=== PATIENT | male | born 1965 | race African-American/Black ===

== ENCOUNTER 2022-09-02 14:44 | Emergency (ER) | payer MEDICAID, OTHER ==
[~2022-09-02] VITALS: Ht 177.8 cm; Wt 85.0 kg
[2022-09-02] MEDS ORDERED: ACETAMINOPHEN 325MG TABLET PO STA (14:52)
[2022-09-02] MEDS ORDERED: SODIUM CHLORIDE 0.9% 1,000 ML IV ONE (15:00)
[2022-09-02] MEDS ORDERED: LORAZEPAM 2MG/ML CPJ IV ONE (15:00)
[2022-09-02 15:35] LABS: BASOPHILS % 0.3 % (0.0-2.0); EOSINOPHILS % 0.2 % (0.0-5.0); HEMATOCRIT. 40.3 % (42.0-52.0); HEMOGLOBIN. 13.9 g/dL (14.0-18.0); MEAN CORPUSCULAR HEMOGLOBIN 31.4 pg (28.0-32.0); MEAN PLATELET VOLUME 6.8 fl (7.4-10.4); MONOCYTES % 9.7 % (2.0-8.0); NEUTROPHILS % 70.8 % (40.0-76.0); PLATELET 299 x1000/uL (130-400); RED BLOOD CELL COUNT 4.43 mill/uL (4.7-6.1); RED CELL DISTRIBUTION WIDTH 14.2 % (11.6-14.6)
[2022-09-02 15:43] LABS: CHLORIDE 100 mEq/L (98-107)
[2022-09-02 15:54] LABS: ETHANOL BLOOD 74 mg/dL (-10)
[2022-09-02 15:58] LABS: INR 0.9
[2022-09-02 18:19] LABS: CLARITY URINE CLEAR (CLEAR); COLOR URINE YELLOW (YELLOW); KETONES URINE NEGATIVE (NEGATIVE); LEUKOCYTE ESTERASE URINE NEGATIVE (NEGATIVE); NITRITE URINE NEGATIVE (NEGATIVE); OCCULT BLOOD URINE NEGATIVE (NEGATIVE); PROTEIN URINE NEGATIVE (NEGATIVE); SPECIFIC GRAVITY URINE 1.004 (1.005-1.030); UROBILINOGEN URINE 0.2 E.U./dL (0.2-1.0)
[2022-09-02 18:58] VITALS: BP 136/94; PULSE 80; RESP 12; TEMP 99.6
[2022-09-03] MEDS ORDERED: AMLO5TAB88 MT (06:09)
== END 2022-09-02 19:19 | disposition home or self-care (01) ==
LOC: ER 14:44
DX: F10.229 Alcohol dependence with intoxication, unspecified (principal); Y90.3 Blood alcohol level of 60-79 mg/100 ml; I10 Essential (primary) hypertension
CPT/HCPCS: 80053; 81003; 80320; 83880; 83690; 85025; 85610; 84484; 36415; 71045; 70450; 93005; 96361; 96374; 99285; J2060; Z7610 ×2; G0480

== ENCOUNTER 2022-09-02 22:09 | Emergency (ER) | payer MEDICAID ==
[~2022-09-02] VITALS: Ht 165.1 cm; Wt 83.0 kg
[2022-09-02 22:14] VITALS: TEMP 98.8; O2SAT 98
[2022-09-03] MEDS ORDERED: AMLODIPINE 5MG TABLET PO ONE (02:15)
[2022-09-03] MEDS ORDERED: HYDRALAZINE 20MG/ML VIAL IV ONE (03:00)
[2022-09-03 03:21] LABS: BASOPHILS % 1.3 % (0.0-2.0); EOSINOPHILS % 0.3 % (0.0-5.0); HEMOGLOBIN. 13.3 g/dL (14.0-18.0); LYMPHOCYTES % 23.6 % (20.0-50.0); MEAN CORPUSCULAR HEMOGLOBIN 30.9 pg (28.0-32.0); MEAN PLATELET VOLUME 6.7 fl (7.4-10.4); MONOCYTES % 9.8 % (2.0-8.0); PLATELET 290 x1000/uL (130-400); RED BLOOD CELL COUNT 4.29 mill/uL (4.7-6.1); RED CELL DISTRIBUTION WIDTH 14.5 % (11.6-14.6)
[2022-09-03 03:27] LABS: CHLORIDE 104 mEq/L (98-107)
[2022-09-03] MEDS ORDERED: LORAZEPAM 2MG/ML CPJ IV ONE (04:45)
[2022-09-03 05:57] VITALS: BP 177/117; PULSE 116; RESP 16
[2022-09-03] MEDS ORDERED: AMLO5TAB88 MT (06:09)
== END 2022-09-03 06:21 | disposition home or self-care (01) ==
LOC: ER 22:09
DX: I10 Essential (primary) hypertension (principal); F20.9 Schizophrenia, unspecified; F10.229 Alcohol dependence with intoxication, unspecified; Y90.0 Blood alcohol level of less than 20 mg/100 ml
CPT/HCPCS: 93005; 99284; 80053; 85025; 84484; 36415; 96374; 96375; J0360; J2060; Z7610

== ENCOUNTER 2023-08-02 04:16 | Emergency (ER) | payer MEDICAID ==
[~2023-08-02] VITALS: Ht 170.2 cm; Wt 70.0 kg
[~2023-08-02 04:16] MED LIST: AMLO5TAB88 MT
[2023-08-02 04:20] VITALS: O2SAT 98
[2023-08-02 05:00] LABS: BASOPHILS % 0.6 % (0.0-2.0); EOSINOPHILS % 0.5 % (0.0-5.0); HEMATOCRIT. 39.2 % (42.0-52.0); HEMOGLOBIN. 13.3 g/dL (14.0-18.0); LYMPHOCYTES % 23.6 % (20.0-50.0); MEAN CORPUSCULAR HGB CONC 33.9 g/dL (31.0-37.0); MEAN CORPUSCULAR VOLUME 91.4 fL (80.0-94.0); MONOCYTES % 10.8 % (2.0-8.0); NEUTROPHILS % 64.5 % (40.0-76.0); PLATELET 356 x1000/uL (130-400); RED BLOOD CELL COUNT 4.29 mill/uL (4.7-6.1); RED CELL DISTRIBUTION WIDTH 14.9 % (11.6-14.6); WHITE BLOOD COUNT 10.3 x1000/uL (4.5-11.0)
[2023-08-02 05:07] LABS: CARBON DIOXIDE 26 mEq/L (21-32); CHLORIDE 105 mEq/L (98-107); POTASSIUM 4.1 mEq/L (3.5-5.1); SODIUM 134 mEq/L (136-145)
[2023-08-02 05:08] LABS: CALCIUM 9.9 mg/dL (8.7-10.4)
[2023-08-02 05:12] LABS: GLUCOSE 108 mg/dL (70-105)
[2023-08-02 05:13] LABS: UREA NITROGEN BLOOD 23 mg/dL (9-23)
[2023-08-02 05:14] LABS: TROPONIN I HIGH SENSITIVITY 5 ng/L (3.0-53)
[2023-08-02 05:35] LABS: CREATININE 1.5 mg/dL (0.6-1.3)
[2023-08-02 09:30] LABS: TROPONIN I HIGH SENSITIVITY 4 ng/L (3.0-53)
[2023-08-02 10:10] VITALS: BP 143/86; PULSE 51; RESP 16; TEMP 98.4
== END 2023-08-02 10:30 | disposition home or self-care (01) ==
LOC: ER 04:30
DX: Z98.890 Other specified postprocedural states (principal)
CPT/HCPCS: 36415; 71045; 80048; 84484; 85025; 93005; 99285